=== PATIENT | female | born 1950 | race Caucasian/White ===

== ENCOUNTER → 2019-01-10 13:44 | Outpatient (CLI) | payer MEDICARE, SELFPAY ==
--- NOTE | 2019-01-10 14:55 | PM.TREADMILL ---
Cardiac Stress Test Report Referral & Results Date Patient Seen: 01/10/19 Requesting provider: Janell Zavala Indication: Chest pain Rest ECG: Unremarkable Procedure Note: Today following both written and verbal informed consent the patient was exercised according to a standard Benjamin protocol patient went for a total of 5 minutes 49 seconds achieving a maximum heart rate of 152 maximum systolic blood pressure of 180. This is approximately 7.0 METS. Exercise was terminated at this point because of targets were met. Patient was also given Cardiolite through a previously started Hep-Lock IV by the automotive technician instructor approximately 1 minute prior to the cessation of exercise. No ST-T segment changes Normal heart rate and blood pressure response Functional week impairment rated 0 on the active scale Rare to occasional PACs are identified Impression: No ECG evidence of ischemia. Average exercise capacity. Please see perfusion imaging report as well Please note: Actual ECG tracings can be found in the PACS system.
--- NOTE | 2019-01-11 17:24 | DI.NM.S_ITS ---
DATE OF SERVICE: 01/10/2019 PROCEDURE PERFORMED: Exercise treadmill stress and rest myocardial perfusion imaging with gating to assess ejection fraction and regional wall motion. REFERRING PROVIDER: Janell Zavala M.D INDICATIONS: The patient is a 68-year-old female with a recent emergency room evaluation for atypical chest pain.. EXERCISE TREADMILL TESTING: The patient was able to exercise for 5 minutes 49 seconds on a standard Benjamin protocol suggesting average exercise capacity with an SERGEY of 0%. She had a normal heart rate and blood pressure response achieving a maximum heart rate of 152 bpm (99% of predicted maximum). She had no chest discomfort. Her resting ECG is normal and there are no ischemic changes or arrhythmias with exercise. At 4 minutes 45 seconds of exercise, at heart rate of 144 bpm, 25.9 mCi of technetium-99 Myoview was injected and the patient was imaged 20 minutes later using a gated SPECT acquisition protocol. She returned the following day and was reinjected with an additional 25.1 mCi of technetium-99 Myoview and was imaged 30 minutes later, again using a gated SPECT acquisition protocol. FINDINGS: 1. Raw Data: There is good myocardial tracer uptake. The lung/heart ratio is normal at 0.39 with a normal TID ratio of 0.81. 2. Quantitative Gated SPECT: Post stress ejection fraction shows vigorous left ventricular systolic function with a calculated post stress ejection fraction 97%, likely an overestimate because of relatively small left particular volumes. There are no focal wall motion abnormalities. Resting ejection fraction is estimated at 84% with an end-diastolic volume of 58 mL. 3. Myocardial Perfusion Imaging: Post stress supine images shows a normal perfusion pattern without any perfusion defects, supported by normal perfusion imaging in the prone position. The resting images show an identical perfusion pattern without any areas of improvement. CONCLUSION: 1. Normal myocardial perfusion study. 2. No evidence for myocardial ischemia or previous myocardial infarction. 3. High-normal left ventricular systolic function with relatively small left ventricular volumes. 4. Average exercise capacity without angina or ECG evidence of ischemia. AminahDai - MIGDALIA/keaton/ doc#: [id number]/job#: [id number] dd: 01/11/2019 16:32:00 dt: 01/11/2019 17:14:00 DICTATING MD/COPIES TO: Reji Evans MD; Janell Zavala M.D. COPIES MNE: KEISHA BUCHANAN
== END ==
PROVIDERS: PCP Family Medicine; Visit Provider Family Medicine
DX: R07.89 Other chest pain (principal)
CPT/HCPCS: 78452; 93016; 93017; 93018; A9502

== ENCOUNTER 2019-10-18 23:41 | Emergency (ER) | payer MEDICARE, OTHER, SELFPAY ==
[2019-10-18 23:52] VITALS: BP 167/77; PULSE 66; RESP 15; TEMP 36.1; O2SAT 100; BMI 19.8
--- NOTE | 2019-10-19 00:26 | ED_ITS ---
HPI - Headache General Chief Complaint: Headache Stated Complaint: tension headache/neck hurts/face hurts Time Seen by Provider: 10/19/19 00:26 Source: patient Mode of arrival: Family Vehicle Limitations: no limitations History of Present Illness HPI Narrative: Patient comes in with complaint of tension headache and that her neck feels very tight, that her eyes feel sore and her cheek feels sore just below her eyes. She states she might have sinus issues. She is not sure she has postnasal drip. She also complains of chest discomfort that is present with her cough but no shortness of breath. She denies any diaphoresis. No passing out or lightheadedness. She states she is often nauseated in the morning but not at this time. She denies any diarrhea constipation or urinary issues. No swelling in her extremities. Patient states she has had a cough for several months that has been on abating and sometimes she will cough something up in Ob better. She states that the color can changes off unclear but could be yellow at times. Foot she has not had any fevers or chills. She does not have any vision changes. She states she does get headaches intermittently and describes what sounds like tension headaches that she take ibuprofen or Tylenol for. Patient states she is not on any medications regularly at this time. She states she had a hernia repair. Denies any tobacco, she has neighbors that smoke heavily on her duplex and seemed to exacerbate her symptoms. She states occasional alcohol and no illicit. Related Data Allergies Allergy/AdvReac Type Severity Reaction Status Date / Time cephalexin [From KEFLEX] Allergy Unknown Unverified 11/29/17 12:38 Cephalosporins Allergy Unknown Unverified 11/29/17 12:38 [CEPHALOSPORINS] codeine [CODEINE] Allergy Unknown Unverified 11/29/17 12:38 gentamicin [GENTAMICIN] Allergy Unknown Unverified 11/29/17 12:38 lactose [LACTOSE] Allergy Unknown Unverified 11/29/17 12:38 neomycin [NEOMYCIN] Allergy Unknown Unverified 11/29/17 12:38 NSAIDS (Non-Steroidal Allergy Unknown Unverified 11/29/17 12:38 Anti-Inflamma [NSAIDS (NON-STEROIDAL ANTI-INFLAMMA] omeprazole [OMEPRAZOLE] Allergy Unknown Unverified 11/29/17 12:38 Sulfa (Sulfonamide Allergy Unknown Unverified 11/29/17 12:38 Antibiotics) [SULFA (SULFONAMIDE ANTIBIOTICS)] Review of Systems Review of Systems ROS Unobtainable: All systems reviewed & are unremarkable except as noted in HPI and below Patient History Surgical History (Updated 10/19/19 @ 01:18 by Jessy Nguyen DO) H/O hernia repair (Acute) Social History Smoking Status: Never smoker Smoking Status: Never smoker alcohol intake frequency: 0-2 drinks per day Substance Use Type: does not use Exam Narrative Exam Narrative: GEN: well nourished, well appearing female, alert and oriented x 3, patient appears to be in mild distress. HEENT: Atraumatic, pupils are equal round reactive to light, extraocular movements are intact, no photophobia, nares are clear, TMs are clear with no fluid, there is no conjunctival pallor. Throat is clear without any exudates, erythema, tonsillar enlargement or uvular deviation negative for meningeal signs. HEART: Regular rate and rhythm without murmur, clicks, rubs. LUNGS:Lungs clear to auscultation, no wheezes, rales, crackles, chest moves symmetrically ABD:bowel sounds normal, soft, non-tender, no guarding, rebound, rigidity, no masses noted, no hepatosplenomegaly :No CVA tenderness MSCL: Non-tender, no muscle atrophy, muscles strength 5/5 upper and lower extremities, full range of motion, normal gait NEURO:CN 2-12 intact, sensation normal. SKIN: No rash, erythema or other skin changes noted. Initial Vital Signs Initial Vital Signs: Vital Signs Temperature 97.0 F L 10/18/19 23:52 Pulse Rate 66 10/18/19 23:52 Respiratory Rate 15 10/18/19 23:52 Blood Pressure 167/77 H 10/18/19 23:52 Pulse Oximetry 100 10/18/19 23:52 Course Orders Ordered: ED Orders 10/19/19 00:53 XR chest 2V Stat EKG-12 Lead Stat Discontinued Medications Cyclobenzaprine HCl (Flexeril) 5 mg PO NOW ONE Stop: 10/19/19 01:22 Last Admin: 10/19/19 01:25 Dose: 5 mg Documented by: TOM Vital Signs Vital signs: Vital Signs - 8 hr 10/18/19 23:52 10/19/19 01:37 Temperature 97.0 F L Pulse Rate 66 76 Respiratory Rate 15 18 Blood Pressure 167/77 H 165/76 H Pulse Oximetry 100 98 MDM - Headache Lab Data Labs: Urine Dip Bedside Urine Glucose Negative Bedside Urine Bilirubin - Negative Bedside Urine Ketone - Negative Urine Specific [place] 1.010 Bedside Urine Occult Blood +/- Bedside Urine pH 6.5 Bedside Urine Protein - Negative Bedside Urine Urobilinogen - Negative Bedside Urine Nitrite - Negative Bedside Urine Leukocytes - Negative Esterase Imaging Data Chest x-ray: Attestation: I personally reviewed and interpreted this imaging study as follows: My Impression: 2 views, nap process. Normal mediastinum, no fractures, no pleural effusions, past medications or infiltrates noted. No free air. Patient has no pulmonary edema noted. ECG Data Attestation: I personally reviewed and interpreted this ECG as follows: Prior ECG tracings: available for review Interpretation: Sinus bradycardia rate of 48, IL 150 QRS 88 QTC of 403. Patient has Q-wave in 1 aVL and V4 V5 V6. Patient has an RSR in V1, V2. Patient has prior EKG from 08/23/2012 appears similar. The V2 in V3 appear different in 06/14/2015 EKG. [facility] Narrative Medical decision making narrative: To the ER with longstanding symptoms and tension headache this evening she is requesting a quarter tablet of a muscle relaxer for home which she thinks will resolve her symptoms. She does not want any other pain medications she has had a longstanding cough and complains of some chest discomfort with this longstanding cough but defers further workup can EKG and chest x-ray. Patient does have Tylenol with caffeine that she had purchased an asked if this would be an appropriate medication to take needed. Patient given one tablet flexeril 5mg which she requested by quartered here by staff. Return precautions and patient asked to follow up with PCP for longstanding symptoms and possible hypertension. Discharge Plan Departure Patient Disposition: Home Clinical Impression: Muscle tension headache, Cough Discharge Date/Time: 10/19/19 01:37 Instructions: DI for Headache Activity Restrictions/Additional Instructions: I do recommend follow-up with her physician if you continue to have headaches regularly and or chest pain along with her cough is you would likely benefit from further workup. Today's EKG appears similar to priors from earlier years. You may take 1/2 or 1/4 tablet of Flexeril at home. Return to the ER for fevers greater 100.4 F, worsening headaches, new vision changes, persistent vomiting, changing or new chest pain or shortness of breath, lightheadedness or passing out, swelling in her extremities, black or bloody stool or coughing up blood. Referrals: Suzette Orr DO [Primary Care Provider] - Kristina Greene DO [Physician] -
--- NOTE | 2019-10-19 00:53 | DI.RAD.S_ITS ---
PROCEDURE: XR CHEST 2V INDICATIONS: cough for several months TECHNIQUE: 2 views of the chest were acquired. COMPARISON: [facility], CT, PE STUDY (CTA CHEST), 08/23/2012, 14:36. FINDINGS: Surgical changes and devices: None. Lungs and pleura: Lungs are clear. There is hyperinflation of the lungs with slight flattening of the hemidiaphragms suggestive of COPD. No pleural effusions or pneumothorax. Mediastinum: Mediastinal contours are normal. Heart size is normal. Bones and chest wall: No suspicious bony abnormalities. Soft tissues appear unremarkable. IMPRESSION: 1. No acute cardiopulmonary disease. 2. Findings suggestive of COPD. Dictated by: Ashu Michael M.D. on 10/19/2019 at 6:14 Approved by: Ashu Michael M.D. on 10/19/2019 at 6:16
[2019-10-19] MEDS: CYCLOBENZAPRINE 5 MG TABLET PO (01:25)
[2019-10-19 01:37] VITALS: BP 165/76; PULSE 76; RESP 18; O2SAT 98
== END 2019-10-19 01:37 | disposition home or self-care (01) ==
PROVIDERS: Emergency Provider Emergency Medicine; PCP Family Medicine
DX: G44.209 Tension-type headache, unspecified, not intractable (principal); R07.9 Chest pain, unspecified; R05 Cough
CPT/HCPCS: 71046; 81003; 93005; 99284

== ENCOUNTER → 2020-05-01 15:28 | Outpatient (CLI) | payer MEDICARE, OTHER, SELFPAY ==
[2020-05-04 09:55] LABS: COVID19 Sendout Not Detected (Not Detect)
== END ==
PROVIDERS: PCP Family Medicine; Visit Provider Physician Assistant
DX: Z11.59 Encounter for screening for other viral diseases (principal)
CPT/HCPCS: 87635

== ENCOUNTER 2020-05-04 13:55 | Day surgery (SDC) | payer MEDICARE, OTHER, SELFPAY ==
[2020-05-01 08:08] VITALS: BMI 19.0
[2020-05-04] VITALS (10 sets, daily range): BP systolic 94–142; BP diastolic 48–70; PULSE 61–86; RESP 12–20; TEMP 36.7–37.6; O2SAT 95–100; BMI 18.6
[2020-05-04] MEDS: LACTATED RINGERS 1,000 ML 42 ML IV ×2 (15:04→17:39)
[2020-05-04] MEDS: ACETAMINOPHEN 325 MG TABLET 975 MG PO (15:09)
--- NOTE | 2020-05-04 15:19 | PM.PREOP ---
Pre-operative Note COVID-19 COVID-19 status: Negative Result date/Date tested (Pos, Neg/Pending): 05/01/20 Interval Note History & Physical reviewed/Exam performed by Physician: Yes Changes to H&P: Yes H&P completed within 30 days and has changed as indicated here:: Patient still desires if possible not to use mesh. Additionally patient is allergic to cephalosporins but is able to take penicillins per her specific information. We use Unasyn for prophylaxis.
[2020-05-04] MEDS: AMPICILLIN/SULBACTAM 3 GM 3 GM in SODIUM CHLORIDE 0.9% 100 ML IV (15:36)
--- NOTE | 2020-05-04 16:00 | SUR.OPER ---
Supine on padded OR bed, head on pillow, arms secured on padded arm boards at <90 degrees abduction, legs uncrossed, safety belt at thigh, tape over blanket over lower legs.
[2020-05-04] MEDS: BUPIVACAINE 0.5% W/ EPI (PF) 30 ML VIAL INJ (16:05)
[2020-05-04] MEDS: fentaNYL 100 MCG/2 ML INJ IV (17:10)
[2020-05-04] MEDS: SIMETHICONE 80 MG TABLET PO (17:33)
--- NOTE | 2020-05-04 17:41 | SUR.PHASEI ---
Pt c/o chest burning that radiates to the back. Pt states that she usually takes mylicon for this pain. Dr Robert notified and to bedside. Mylicon ordered and given. 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 Pt states pain is now 4/10.
--- NOTE | 2020-05-04 17:43 | PM.OP.1 ---
Operative Date/Time/Diagnoses Date of procedure: 05/04/20 Time of procedure: 17:01 Pre-op diagnosis: Recurrent left inguinal hernia Post-op diagnosis: same Procedure & Clinicians Procedure: Repair primary Same procedure as scheduled: Yes Indications: Symptomatic left inguinal hernia Surgeon: Sandip Crowe Click Yes if Unassisted: Yes Anesthesia Type: Spinal and Local Operative Notes Findings: Discrete hernia medial aspect of her prior repair. Scarring from prior hernia repair Closure Type: primary Specimen(s): none sent Prosthetic devices, grafts, tissues, transplants, or devices: None Estimated Blood Loss (mL): 5 Blood products transfused: none Procedure in detail: The patient is placed supine on the operating room table after having spinal anesthetic. Patient declined any kind of oral intubation. She was prepped and draped in the usual fashion. Local anesthetic was infiltrated left lower quadrant on each side of a scar from her prior repair. Incision was made through the old scar I did not use the entire scar that only the medial 2/3 of it. The incision was carried down the level the muscle. Scarring was evident. I opened the external oblique which was densely scarred to the underlying tissue. I identified a hernia sac at the very medial aspect adjacent to the pubic tubercle. This contained preperitoneal fat which was reduced. The fascial muscle edges were cleared of tissue and primary closure was undertaken. The patient did not want mesh used unless absolutely necessary. This is a very small defect the barely admitted the tip of a finger. The closure appeared to be secure. This included sutures into the superficial part of Benjamin's ligament. The external oblique was closed with interrupted [id number] Ethibond. Subcu was closed with interrupted 3 0 Vicryl and skin was closed with a running 4 0 Vicryl subcuticular stitch and Steri-Strips. Dressing was applied the patient was taken recovery room good condition. Complications: none Post-operative Condition: stable Disposition: PACU
--- NOTE | 2020-05-04 18:35 | SUR.PHASEII ---
Pt up and ambulating gait steady. Up to br and voiding well. Taking po fluids without any problems. Denies pain or nausea. Iv dcd site clear. Pt sitting up in wc now waiting for her ride fully clothed with all dc instructions given and pt verbalizes understanding. Will pass by pharmacy on way home to p/u rx. 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
--- NOTE | 2020-05-04 19:16 | SUR.PHASEII ---
Pt dcd in stable condition via wc to curbside private vehicle with all belongings and dc instructions.
== END 2020-05-04 19:17 | disposition home or self-care (01) ==
PROVIDERS: PCP Family Medicine; Referring Provider Specialist; Visit Provider Specialist
PROC: (CPT 49520; principal; 2020-05-04 15:45)
DX: K40.91 Unilateral inguinal hernia, without obstruction or gangrene, recurrent (principal); J45.909 Unspecified asthma, uncomplicated
CPT/HCPCS: 49520; J0295; J2704; J3010

== ENCOUNTER → 2020-08-28 16:11 | Outpatient (CLI) | payer MEDICARE, OTHER, SELFPAY ==
[2020-08-28 18:31] LABS: Cholesterol 264 mg/dL (140-199); HDL Cholesterol 94 mg/dL (40-60); LDL Cholesterol Calculated 131 mg/dL (<100); Triglycerides 195 mg/dL (35-150)
== END ==
PROVIDERS: PCP Family Medicine; Referring Provider Internal Medicine Cardiovascular Disease; Visit Provider Internal Medicine Cardiovascular Disease
DX: E78.5 Hyperlipidemia, unspecified (principal)
CPT/HCPCS: 36415; 80061

== ENCOUNTER → 2020-09-21 15:03 | Outpatient (CLI) | payer MEDICARE, OTHER, SELFPAY ==
[2020-09-21 17:35] LABS: COVID19 -Nasal RAPID Negative (Negative)
== END ==
PROVIDERS: PCP Family Medicine; Visit Provider Physician Assistant
DX: Z01.812 Encounter for preprocedural laboratory examination (principal); Z20.822 Contact with and (suspected) exposure to COVID-19
CPT/HCPCS: 87635; C9803

== ENCOUNTER → 2020-09-30 11:47 | Outpatient (CLI) | payer MEDICARE, OTHER, SELFPAY ==
[2020-09-30 12:22] LABS: COVID19 -Nasal RAPID Negative (Negative)
== END ==
PROVIDERS: PCP Family Medicine; Visit Provider Physician Assistant
DX: Z01.812 Encounter for preprocedural laboratory examination (principal); Z20.822 Contact with and (suspected) exposure to COVID-19
CPT/HCPCS: 87635; C9803

== ENCOUNTER → 2020-10-01 15:26 | Outpatient (CLI) | payer MEDICARE, OTHER, SELFPAY ==
--- NOTE | 2020-10-02 13:15 | DI.NM.S_ITS ---
DATE OF SERVICE: 10/01/2020 PROCEDURE: Nonimaging exercise treadmill study. ORDERING PROVIDER: Dr. Chaitanya Salas. INDICATIONS: The patient is a 70-year-old female with palpitations and atypical chest discomfort. FINDINGS: 1. The patient was able to exercise for 6 minutes 2 seconds on a standard Benjamin protocol suggesting average exercise capacity with an SERGEY of -2%. 2. She had a normal heart rate and blood pressure response, achieving a maximum heart rate of 154 BPM (102% of her predicted maximum). 3. She had no chest discomfort. 4. The resting ECG shows sinus rhythm with normal ST segments. There are no significant ST-segment shifts or arrhythmias except for rare isolated PVCs. IMPRESSION: 1. Normal exercise treadmill study with no ECG evidence for ischemia. 2. Average exercise capacity without angina or arrhythmias except for PVCs. Dai Burr - MIGDALIA/keaton/lc doc#: [id number]/job#: [id number] dd: 10/02/2020 12:58:00 dt: 10/02/2020 13:07:00 DICTATING /COPIES TO: Reji Evans MD; Jennifer Salas MD COPIES MNE: CHARO;
== END ==
PROVIDERS: PCP Family Medicine; Referring Provider Internal Medicine Cardiovascular Disease; Visit Provider Internal Medicine Cardiovascular Disease
DX: R07.89 Other chest pain (principal); R00.2 Palpitations; R00.0 Tachycardia, unspecified
CPT/HCPCS: 93017